=== PATIENT | male | born 1955 | race Caucasian/White ===

== ENCOUNTER 2022-01-29 07:48 | Outpatient (REF) | payer MEDICARE, SELFPAY ==
--- NOTE | ~2022-01-29 | XR_ITS ---
EXAMINATION: XR HIP, LEFT CLINICAL INFORMATION: Left hip pain COMPARISON: None TECHNIQUE: Two views of the left hip. FINDINGS: No fracture. Alignment is anatomic. Hip joint space is maintained. Lateral acetabular bony hypertrophy, question subchondral cysts. Visualized pelvic bones are intact. XR/XR hip LT min 2V IMPRESSION: Mild left hip arthritis.
[2022-01-29 10:11] LABS: C Reactive Protein 0.03 mg/dL (< or = 0.50)
[2022-01-29 10:32] LABS: Erythrocyte Sedimentation Rate 5 MM/HR (0-15)
== END 2022-01-29 07:49 | disposition home or self-care (01) ==
LOC: HO.XRAY 07:48
PROVIDERS: PCP Internal Medicine; Visit Provider Internal Medicine Rheumatology
DX: M25.551 Pain in right hip (principal); M25.552 Pain in left hip; M47.816 Spondylosis without myelopathy or radiculopathy, lumbar region; M47.814 Spondylosis without myelopathy or radiculopathy, thoracic region; M25.50 Pain in unspecified joint; Z79.899 Other long term (current) drug therapy
CPT/HCPCS: 36415; 73502; 85652; 86140; 99212

== ENCOUNTER → 2022-02-14 08:22 | Outpatient (BNVA) | payer MEDICARE, SELFPAY | PROVIDERS: PCP Internal Medicine; Visit Provider Internal Medicine Rheumatology | DX: M70.62 Trochanteric bursitis, left hip (principal); M47.816 Spondylosis without myelopathy or radiculopathy, lumbar region | CPT/HCPCS: 20610; 99212 ==